=== PATIENT | male | born 1955 | race Caucasian/White ===

== ENCOUNTER 2016-11-14 19:33 | Emergency (ER) | payer OTHER | END 2016-11-14 21:05 | disposition home or self-care (01) | LOC: ER 19:33 | DX: J20.9 Acute bronchitis, unspecified (principal); R11.0 Nausea; R50.9 Fever, unspecified; I25.2 Old myocardial infarction; I11.0 Hypertensive heart disease with heart failure; I50.9 Heart failure, unspecified; Z95.5 Presence of coronary angioplasty implant and graft; Z90.49 Acquired absence of other specified parts of digestive tract; Z88.0 Allergy status to penicillin; Z88.1 Allergy status to other antibiotic agents | CPT/HCPCS: 36415; 87502; 87651; 96374; J1885 ==

== ENCOUNTER 2016-11-17 00:35 | Emergency (ER) | payer SELFPAY | END 2016-11-17 02:42 | disposition E | LOC: ER 00:35 | DX: I46.9 Cardiac arrest, cause unspecified (principal); I11.0 Hypertensive heart disease with heart failure; I50.9 Heart failure, unspecified; F17.200 Nicotine dependence, unspecified, uncomplicated; Z88.1 Allergy status to other antibiotic agents; Z88.0 Allergy status to penicillin ==